=== PATIENT | female | born 1955 | race Caucasian/White ===

== ENCOUNTER 2016-11-13 08:09 | Emergency (ER) | payer BC ==
[2016-11-13 08:18] VITALS: BP 124/68
--- NOTE | 2016-11-26 09:34 | UC ---
Stewart Gutierrez Angela, scribed for Freda Garcia MD on 11/13/16 at 0842 . Abdominal Pain Female HPI - HPI Summary HPI Summary: This pt is a 61 y/o female presenting to [facility] c/o worsening LLQ abd pain x2 days. Pt reports that she had diarrhea 3 days ago for 2 days, Saturday and Saturday. She denies bloody diarrhea or SOB. Her last bowel movement was 2 days ago. Pt additionally reports her abd is bloated. She states urinary urgency but denies dysuria and hematuria. Pt notes she had a fever of 100.6 F last night. Last time she had something to eat was last night and this morning she had some water. PMHx: kidney stones. Pt denies FHx of diverticulitis, DM or thyroid disease. Pt had scoliosis surgery at the age of 14. - History of Current Complaint Chief Complaint: UCAbdominalPain Stated Complaint: ABDOMINAL PAIN Time Seen by Provider: 11/13/16 08:30 Hx Obtained From: Patient Onset/Duration: Lasting Days Location: Discrete At: LLQ Associated Signs and Symptoms: Positive: Fever, Urinary Symptoms - urinary frequency only, Diarrhea. Negative: Constipation, Nausea, Vomiting Allergies/Adverse Reactions: Allergies Allergy/AdvReac Type Severity Reaction Status Date / Time No Known Allergies Allergy Verified 11/13/16 09:32 PMH/Surg Hx/FS Hx/Imm Hx Other Endocrine History: DENIES: diabetes Other Cardiovascular History: DENIES: HTN GI/ History: Kidney Stones - Surgical History Surgical History: Yes Surgery Procedure, Year, and Place: right breast- scar lateral edge of nipple= approx 10 yrs ago. scoliosis - Family History Known Family History: Positive: Other - Denies FHx of diverticulitis. Mother had fatal lung CA. Negative: Cardiac Disease, Diabetes - Social History Alcohol Use: Daily Alcohol Amount: wine nightly Substance Use Type: None Smoking Status (MU): Never Smoked Tobacco Review of Systems Constitutional: Fever Skin: Negative Eyes: Negative ENT: Negative Respiratory: Negative Cardiovascular: Negative Gastrointestinal: Abdominal Pain, Diarrhea Genitourinary: Urgency Motor: Negative Neurovascular: Negative Musculoskeletal: Negative Neurological: Negative Psychological: Negative All Other Systems Reviewed And Are Negative: Yes Physical Exam Triage Information Reviewed: Yes Appearance: Well-Nourished Vital Signs: Initial Vital Signs Temp 99.2 F 11/13/16 08:13 Pulse 53 11/13/16 08:13 Resp 16 11/13/16 08:13 BP 124/68 11/13/16 08:13 Pulse Ox 97 11/13/16 08:13 Vital Signs Reviewed: Yes Eye Exam: Normal ENT Exam: Normal ENT: Positive: Pharynx normal, TMs normal Neck exam: Normal Respiratory Exam: Normal Respiratory: Positive: Chest non-tender, Lungs clear, Normal breath sounds, No respiratory distress, No accessory muscle use Cardiovascular: Positive: No Murmur, Pulses Normal, Brisk Capillary Refill, Other: - Regular rate with occasional skip beat. Abdomen Description: Positive: No Organomegaly, Soft, Other: - Tender on the LLQ , no r/g, but tender. No devon cvat. Bowel Sounds: Positive: Present Musculoskeletal Exam: Normal Musculoskeletal: Positive: Strength Intact Neurological Exam: Normal - nonfocal, grossly intact Psychological Exam: Normal - conversing easily and appropriately Skin Exam: Normal - no visible or reported rash Diagnostics - EKG Cardiac Rhythm: Sinus: Normal - at 105 bpm with PACs. No older EKG for comparison. Ectopy: PACs Abd Pain Female Course/Dx - Course Course Of Treatment: Recommend further eval / tx in ED. Patient offered and encouraged EMS. Patient declines. She will go the ED pov. I spoke to PRIYA Gasca from the ED at 0921. - Differential Dx/Diagnosis Provider Diagnoses: LLQ abd pain acute Discharge - Discharge Plan Condition: Guarded Disposition: [facility] Patient Education Materials: Abdominal Pain (ED) Referrals: Pebbles Fallon MD [Primary Care Provider] - Additional Instructions: PLEASE GO DIRECTLY TO THE EMERGENCY DEPARTMENT. Don't stop to eat or drink. Stop and call 911 for any worsening problems. The documentation as recorded by the Steawrt cuellar Angela accurately reflects the service I personally performed and the decisions made by me, Freda Garcia MD.
== END 2016-11-13 09:03 | disposition short-term general hospital (02) ==
LOC: UCEAST 08:09
DX: R10.32 Left lower quadrant pain (principal); R50.9 Fever, unspecified; R35.0 Frequency of micturition; R19.7 Diarrhea, unspecified; R00.0 Tachycardia, unspecified; Z87.442 Personal history of urinary calculi
CPT/HCPCS: 93005; 99211; G0463

== ENCOUNTER → 2016-11-13 09:24 | Emergency (ER) | payer BC ==
[~2016-11-13 09:24] MED LIST: Iohexol 300* (CONTRAST) 10 ML SDV IV ONE; Morphine INJ* 4 MG/ML 1 ML CARPUJECT IV ONE; NS 0.9% 1000 ML* 2,000 ML IV ONE; Ondansetron INJ* 2 MG/ML VIAL IV ONE
[2016-11-13 10:45] LABS: Hematocrit 39 % (35-47); Hemoglobin 13.3 g/dl (12.0-16.0); Mean Corpuscular HGB Conc 34 g/dl (31-36); Mean Corpuscular Hemoglobin 30 pg (27-31); Mean Corpuscular Volume 87 fL (80-97); Mean Platelet Volume 7 um3 (7.4-10.4); Red Blood Count 4.47 10^6/ul (4.0-5.4); Red Cell Distribution Width 13 % (10.5-15); White Blood Count 11.4 10^3/ul (3.5-10.8)
[2016-11-13 10:58] LABS: ALT 9 U/L (7-52); AST 13 U/L (13-39); Alkaline Phosphatase 58 U/L (34-104); Anion Gap 8 mmol/L (2-11); BUN/Creatinine Ratio 14.7 (8-20); Blood Urea Nitrogen 10 mg/dL (6-24); C Reactive Protein 95.93 mg/L (< 5.00); CO2 Carbon Dioxide 25 mmol/L (22-32); Calcium 9.4 mg/dL (8.6-10.3); Chloride 104 mmol/L (101-111); EGFR African American 113.5 (>60); EGFR Non-African American 88.3 (>60); Globulin 2.7 g/dL (2-4); Glucose 95 mg/dL (70-100); Lipase < 10 U/L (11.0-82.0); Potassium 3.7 mmol/L (3.5-5.0); Sodium 137 mmol/L (133-145); Total Protein 6.7 g/dL (6.4-8.9)
[2016-11-13 11:57] LABS: Urine Nitrite Negative (Negative)
[2016-11-13 11:58] LABS: Urine Bilirubin Negative (Negative); Urine Glucose Negative (Negative)
--- NOTE | 2016-11-13 13:37 | RAD ---
CLINICAL HISTORY: Left lower quadrant tenderness, colitis, abscess COMPARISON: None TECHNIQUE: Multiple contiguous axial CT scans were obtained of the abdomen and pelvis after the administration of intravenous contrast. Coronal and sagittal multiplanar reformations are submitted for review. Oral contrast was administered. Delayed images were obtained through the abdomen and pelvis. FINDINGS: LUNG BASES: The lung bases are clear. LIVER: There are multiple hepatic parenchymal cysts, measuring up to 5.3 centers in size. These measure simple fluid in attenuation. There is a hypervascular lesion of the right lobe of liver measuring 4.2 cm in size on the venous phase that resolves on the delayed images. BILE DUCTS: There is no intrahepatic or extrahepatic biliary dilatation. GALLBLADDER: The gallbladder is normal, without pericholecystic inflammatory change. PANCREAS: The pancreas is normal, without mass or ductal dilatation. SPLEEN: Normal in size and appearance. UPPER GI TRACT: Evaluation of the gastrointestinal tract is limited by incomplete gastric distention. The upper GI tract is unremarkable. SMALL BOWEL AND MESENTERY: The small bowel is normal in contour, course, and caliber. There is no obstruction or dilatation. COLON: There are multiple diverticula of the descending and sigmoid colon, including a giant diverticulum at the descending-sigmoid junction measuring approximately 2.6 centers in size. There is associated pericolonic inflammatory change. There is also mucosal thickening of the colon at this level. ADRENALS: Normal bilaterally. KIDNEYS: The kidneys are normal in shape, size, contour, and axis. There is no hydronephrosis or nephrolithiasis. BLADDER: The bladder is smooth in contour. PELVIC ORGANS: The uterus and adnexa are grossly normal for technique. AORTA: The aorta is normal. IVC: Unremarkable LYMPH NODES: There is no lymphadenopathy by size criteria. ABDOMINAL WALL: There is no evidence for abdominal wall hernia. BONES AND SOFT TISSUES: There is a scoliotic curvature of the spine. There is postsurgical change to the spine. OTHER: None IMPRESSION: 1. THERE IS DIVERTICULOSIS OF THE COLON, INCLUDING A GIANT DIVERTICULUM AT THE DESCENDING-SIGMOID COLON JUNCTION WITH ASSOCIATED PERICOLONIC INFLAMMATORY CHANGE, MOST CONSISTENT WITH DIVERTICULITIS. THERE IS NO LOCULATED FLUID COLLECTION TO SUGGEST ABSCESS. 2. ADDITIONALLY, THERE IS FOCAL MUCOSAL THICKENING AT THE LEVEL OF INFLAMMATORY CHANGE. WHILE THIS MAY BE REACTIVE SECONDARY TO THE DIVERTICULITIS, COLONIC MUCOSAL NEOPLASM MAY GIVE A SIMILAR APPEARANCE. RECOMMEND CONSIDERATION OF CORRELATION WITH DIRECT VISUALIZATION AFTER RESOLUTION OF THE ACUTE SYMPTOMS. 3. MULTIPLE HEPATIC PARENCHYMAL CYSTS. 4. PROBABLE GIANT HEMANGIOMA OF THE RIGHT LOBE OF LIVER. RECOMMEND CONSIDERATION OF FURTHER EVALUATION WITH MULTIPHASE CONTRAST ENHANCED LIVER PROTOCOL CT, OR CONTRAST-ENHANCED MRI OF THE ABDOMEN IN THE NONACUTE SETTING
[2016-11-13 15:06] VITALS: BP 134/86
--- NOTE | 2016-11-13 15:48 | ED ---
Ariela Gutierrez Thomas, scribed for Tomas Molina MD on 11/13/16 at 1018 . Abdominal Pain/Female - HPI Summary HPI Summary: The pt is a 61 y/o F presenting to the ED c/o LLQ abd pain that began two days ago in the morning. She rates her pain 5/10. The bumps hurt on the car ride to [facility]. The pain is aggravated by walking and alleviated by putting her feet up. The patient has treated the pain with nothing [employer]. Pt additionally c/o nausea, diarrhea (two days ago), constipation since two days ago, fever, and chills. Pt denies vomiting, back pain, dysuria, hematuria, dark urine, hematochezia, hematemesis, rhinorrhea, sore throat, and decreased appetite. She has had a colonoscopy and there were polyps removed. PMHx: previously healthy. SHx: no smoking, daily alcohol use, no illicit drug use. FHx: negative for diverticulitis and colon CA. Her PCP is Dr. Nabila South. - History of Current Complaint Chief Complaint: EDAbdPain Stated Complaint: ABD PAIN Time Seen by Provider: 11/13/16 10:02 Hx Obtained From: Patient Onset/Duration: Lasting Days - onset two days ago, Still Present Timing: Constant Severity Currently: Moderate Pain Intensity: 5 Pain Scale Used: 0-10 Numeric Location: Discrete At: LLQ Radiates: No Aggravating Factor(s): Movement Alleviating Factor(s): Position Associated Signs and Symptoms: Positive: Fever, Constipation - since two days ago, Nausea, Diarrhea - two days ago, Other: - POS: chills; NEG: hematemesis, rhinorrhea, sore throat. Negative: Blood in Stool, Urinary Symptoms, Decreased Appetite Allergies/Adverse Reactions: Allergies Allergy/AdvReac Type Severity Reaction Status Date / Time No Known Allergies Allergy Verified 11/13/16 09:32 PMH/Surg Hx/FS Hx/Imm Hx Previously Healthy: No Cardiovascular History: Denies: Hx Congestive Heart Failure Respiratory History: Denies: Hx Chronic Obstructive Pulmonary Disease (COPD) - Cancer History Hx Radiation Therapy: No - Surgical History Surgery Procedure, Year, and Place: right breast- scar lateral edge of nipple= approx 10 yrs ago. scoliosis Infectious Disease History: No Infectious Disease History: Denies: Traveled Outside the [place] in Last 30 Days - Family History Known Family History: Positive: Other - NEG: diverticulitis, colon CA - Social History Alcohol Use: Daily Alcohol Amount: wine nightly Hx Substance Use: No Substance Use Type: Reports: None Hx Tobacco Use: No Smoking Status (MU): Never Smoked Tobacco Review of Systems Positive: Fever - fever per patient, but she is afebrile in the ED, Chills Negative: Sore Throat, Nasal Discharge Positive: Abdominal Pain - LLQ abd pain onset two days ago, Diarrhea - two days ago, Nausea, Other - POS: constipation since two days ago; NEG: bloody stool, hematemesis, decreased appetite. Negative: Vomiting Negative: dysuria, hematuria, other - NEG: dark urine Negative: Other - NEG: back pain All Other Systems Reviewed And Are Negative: Yes Physical Exam - Summary Physical Exam Summary: The patient is well-nourished in no acute distress and in no acute pain. The skin is warm and dry and skin color reflects adequate perfusion. HEENT: The head is normocephalic and atraumatic. The pupils are equal and reactive. The conjunctivae are clear and without drainage. Nares are patent and without drainage. Mouth reveals moist mucous membranes and the throat is without erythema and exudate. The external ears are intact. The ear canals are patent and without drainage. The tympanic membranes are intact. Neck is supple with full range of motion and non-tender. There are no carotid bruits. There is no neck vein distension. Respiratory: Chest is non-tender. Lungs are clear to auscultation and breath sounds are symmetrical and equal. Cardiovascular: Heart is tachycardic and with regular rhythm. There is no murmur or rub auscultated. There is no peripheral edema and pulses are symmetrical and equal. Abdomen: The abdomen is soft. There is tenderness in the left mid quadrant and the left lower quadrant. There is percussion tenderness. There is no CVA tenderness. There is questionable rebound. There are normal bowel sounds heard in all four quadrants and there is no organomegaly palpated. Musculoskeletal: There is no back pain noted. Extremities are non-tender with full range of motion. There is good capillary refill. There is no peripheral edema or calf tenderness elicited. She does have pain with flexion of her left knee. Neurological: Patient is alert and oriented to person, place and time. The patient has symmetrical motor strength in all four extremities. Cranial nerves are grossly intact. Deep tendon reflexes are symmetrical and equal in all four extremities. Psychiatric: The patient has an appropriate affect and does not exhibit any anxiety or depression. Triage Information Reviewed: Yes Vital Signs On Initial Exam: Initial Vitals Temp Pulse Resp BP Pulse Ox 98.4 F 105 20 119/82 99 11/13/16 09:25 11/13/16 09:25 11/13/16 09:25 11/13/16 09:25 11/13/16 09:25 Vital Signs Reviewed: Yes - Tima Coma Scale Coma Scale Total: 15 Diagnostics - Vital Signs Vital Signs Temp Pulse Resp BP Pulse Ox 11/13/16 09:25 98.4 F 105 20 119/82 99 - Laboratory Lab Results: Lab Results 11/13/16 11/13/16 11/13/16 Range/Units 10:30 10:30 10:30 WBC 11.4 H (3.5-10.8) 10^3/ul RBC 4.47 (4.0-5.4) 10^6/ul Hgb 13.3 (12.0-16.0) g/dl Hct 39 (35-47) % MCV 87 (80-97) fL MCH 30 (27-31) pg MCHC 34 (31-36) g/dl RDW 13 (10.5-15) % Plt Count 185 (150-450) 10^3/ul MPV 7 L (7.4-10.4) um3 Neut % (Auto) 78.0 (38-83) % Lymph % (Auto) 12.8 L (25-47) % [place] % (Auto) 8.6 (1-9) % Eos % (Auto) 0.2 (0-6) % Baso % (Auto) 0.4 (0-2) % Absolute Neuts (auto) 8.9 H (1.5-7.7) 10^3/ul Absolute Lymphs (auto) 1.5 (1.0-4.8) 10^3/ul Absolute Monos (auto) 1.0 H (0-0.8) 10^3/ul Absolute Eos (auto) 0 (0-0.6) 10^3/ul Absolute Basos (auto) 0 (0-0.2) 10^3/ul Absolute Nucleated RBC 0.01 10^3/ul Nucleated RBC % 0.1 Sodium 137 (133-145) mmol/L Potassium 3.7 (3.5-5.0) mmol/L Chloride 104 (101-111) mmol/L Carbon Dioxide 25 (22-32) mmol/L Anion Gap 8 (2-11) mmol/L BUN 10 (6-24) mg/dL Creatinine 0.68 (0.51-0.95) mg/dL Est GFR ( Amer) 113.5 (>60) Est GFR (Non-Af Amer) 88.3 (>60) BUN/Creatinine Ratio 14.7 (8-20) Glucose 95 (70-100) mg/dL Lactic Acid 0.9 (0.5-2.0) mmol/L Calcium 9.4 (8.6-10.3) mg/dL Total Bilirubin 0.90 (0.2-1.0) mg/dL AST 13 (13-39) U/L ALT 9 (7-52) U/L Alkaline Phosphatase 58 (34-104) U/L C-Reactive Protein 95.93 H (< 5.00) mg/L Total Protein 6.7 (6.4-8.9) g/dL Albumin 4.0 (3.2-5.2) g/dL Globulin 2.7 (2-4) g/dL Albumin/Globulin Ratio 1.5 (1-3) Lipase < 10 L (11.0-82.0) U/L Urine Color Urine Appearance Urine pH (5-9) Ur Specific [place] (1.010-1.030) Urine Protein (Negative) Urine Ketones (Negative) Urine Blood (Negative) Urine Nitrate (Negative) Urine Bilirubin (Negative) Urine Urobilinogen (Negative) Ur Leukocyte Esterase (Negative) Urine WBC (Auto) (Absent) Urine RBC (Auto) (Absent) Ur Squamous Epith Cells (Absent) Urine Bacteria Urine Glucose (Negative) Urine Ascorbic Acid 11/13/16 Range/Units 11:40 WBC (3.5-10.8) 10^3/ul RBC (4.0-5.4) 10^6/ul Hgb (12.0-16.0) g/dl Hct (35-47) % MCV (80-97) fL MCH (27-31) pg MCHC (31-36) g/dl RDW (10.5-15) % Plt Count (150-450) 10^3/ul MPV (7.4-10.4) um3 Neut % (Auto) (38-83) % Lymph % (Auto) (25-47) % [place] % (Auto) (1-9) % Eos % (Auto) (0-6) % Baso % (Auto) (0-2) % Absolute Neuts (auto) (1.5-7.7) 10^3/ul Absolute Lymphs (auto) (1.0-4.8) 10^3/ul Absolute Monos (auto) (0-0.8) 10^3/ul Absolute Eos (auto) (0-0.6) 10^3/ul Absolute Basos (auto) (0-0.2) 10^3/ul Absolute Nucleated RBC 10^3/ul Nucleated RBC % Sodium (133-145) mmol/L Potassium (3.5-5.0) mmol/L Chloride (101-111) mmol/L Carbon Dioxide (22-32) mmol/L Anion Gap (2-11) mmol/L BUN (6-24) mg/dL Creatinine (0.51-0.95) mg/dL Est GFR ( Amer) (>60) Est GFR (Non-Af Amer) (>60) BUN/Creatinine Ratio (8-20) Glucose (70-100) mg/dL Lactic Acid (0.5-2.0) mmol/L Calcium (8.6-10.3) mg/dL Total Bilirubin (0.2-1.0) mg/dL AST (13-39) U/L ALT (7-52) U/L Alkaline Phosphatase (34-104) U/L C-Reactive Protein (< 5.00) mg/L Total Protein (6.4-8.9) g/dL Albumin (3.2-5.2) g/dL Globulin (2-4) g/dL Albumin/Globulin Ratio (1-3) Lipase (11.0-82.0) U/L Urine Color Yellow Urine Appearance Clear Urine pH 5.0 (5-9) Ur Specific [place] 1.020 (1.010-1.030) Urine Protein N (Negative) Urine Ketones 1+ H (Negative) Urine Blood 1+ H (Negative) Urine Nitrate Negative (Negative) Urine Bilirubin Negative (Negative) Urine Urobilinogen N (Negative) Ur Leukocyte Esterase Negative (Negative) Urine WBC (Auto) Absent (Absent) Urine RBC (Auto) Trace(0-2/hpf) (Absent) Ur Squamous Epith Cells Present H (Absent) Urine Bacteria Not Reportable Urine Glucose Negative (Negative) Urine Ascorbic Acid Not Reportable Result Diagrams: 11/13/16 10:30 11/13/16 10:30 Lab Statement: Any lab studies that have been ordered have been reviewed, and results considered in the medical decision making process. - CT CT Abd/Pel CT Interpretation: Positive (See Comments) - CT Abd/Pel shows 1. THERE IS DIVERTICULOSIS OF THE COLON, INCLUDING A GIANT DIVERTICULUM AT THE DESCENDING- SIGMOID COLON JUNCTION WITH ASSOCIATED PERICOLONIC INFLAMMATORY CHANGE, MOST CONSISTENT WITH DIVERTICULITIS. THERE IS NO LOCULATED FLUID COLLECTION TO SUGGEST ABSCESS. 2. ADDITIONALLY, THERE IS FOCAL MUCOSAL THICKENING AT THE LEVEL OF INFLAMMATORY CHANGE. WHILE THIS MAY BE REACTIVE SECONDARY TO THE DIVERTICULITIS, COLONIC MUCOSAL NEOPLASM MAY GIVE A SIMILAR APPEARANCE. RECOMMEND CONSIDERATION OF CORRELATION WITH DIRECT VISUALIZATION AFTER RESOLUTION OF THE ACUTE SYMPTOMS. 3. MULTIPLE HEPATIC PARENCHYMAL CYSTS. 4. PROBABLE GIANT HEMANGIOMA OF THE RIGHT LOBE OF LIVER. RECOMMEND CONSIDERATION OF FURTHER EVALUATION WITH MULTIPHASE CONTRAST ENHANCED LIVER PROTOCOL CT, OR CONTRAST-ENHANCED MRI OF THE ABDOMEN IN THE NONACUTE SETTING. ED physician has reviewed this report and agrees. CT Interpretation Completed By: Radiologist Abdominal Pain Fem Course/Dx - Course Course Of Treatment: The pt is a 61 y/o F presenting to the ED c/o LLQ abd pain that began two days ago in the morning. She rates her pain 5/10. The bumps hurt on the car ride to [facility]. The pain is aggravated by walking and alleviated by putting her feet up. The patient has treated the pain with nothing [employer]. Pt additionally c/o nausea, diarrhea (two days ago), constipation since two days ago, fever, and chills. Pt denies vomiting, back pain, dysuria, hematuria, dark urine, hematochezia, hematemesis, rhinorrhea, sore throat, and decreased appetite. She has had a colonoscopy and there were polyps removed. PMHx: previously healthy. SHx: no smoking, daily alcohol use, no illicit drug use. FHx : negative for diverticulitis and colon CA. Her PCP is Dr. Nabila South. In the ED course the patient was given IV fluids, Morphine, and Zofran. Bloodwork shows WBC 11.4, CRP 95.93. CT Abd/Pel shows 1. THERE IS DIVERTICULOSIS OF THE COLON, INCLUDING A GIANT DIVERTICULUM AT THE. DESCENDING-SIGMOID COLON JUNCTION WITH ASSOCIATED PERICOLONIC INFLAMMATORY CHANGE, MOST. CONSISTENT WITH DIVERTICULITIS. THERE IS NO LOCULATED FLUID COLLECTION TO SUGGEST ABSCESS. 2. ADDITIONALLY, THERE IS FOCAL MUCOSAL THICKENING AT THE LEVEL OF INFLAMMATORY CHANGE. WHILE THIS MAY BE REACTIVE SECONDARY TO THE DIVERTICULITIS , COLONIC MUCOSAL NEOPLASM MAY. GIVE A SIMILAR APPEARANCE. RECOMMEND CONSIDERATION OF CORRELATION WITH DIRECT. VISUALIZATION AFTER RESOLUTION OF THE ACUTE SYMPTOMS. 3. MULTIPLE HEPATIC PARENCHYMAL CYSTS. 4. PROBABLE GIANT HEMANGIOMA OF THE RIGHT LOBE OF LIVER. RECOMMEND CONSIDERATION OF. FURTHER EVALUATION WITH MULTIPHASE CONTRAST ENHANCED LIVER PROTOCOL CT, OR. CONTRAST-ENHANCED MRI OF THE ABDOMEN IN THE NONACUTE SETTING. UA shows 1+ ketones and 1+ blood. She is diagnosed with acute diverticulitis. She will be prescribed Cipro, Flagyl, and some Percocet. She will be discharged home. She is stable. Patient is agreeable to this plan. - Diagnoses Differential Diagnosis: Positive: Bowel Obstruction, Diverticulitis, Irritable Bowel Syndrome, Pancreatitis, Urinary Tract Infection Provider Diagnoses: Acute diverticulitis Discharge - Discharge Plan Condition: Stable Disposition: HOME Prescriptions: Ciprofloxacin TAB* [Cipro 500 MG TAB*] 500 mg PO BID #20 tab Metronidazole [Flagyl 500 MG TAB] 500 mg PO QID #40 tab oxyCODONE/Acetamin 5/325 MG* [Percocet 5/325 TAB*] 1 tab PO Q6H PRN #20 tab MDD 4 PRN Reason: pain Patient Education Materials: Diverticulitis (ED) Referrals: Pebbles Fallon MD [Primary Care Provider] - 3 Days The documentation as recorded by the Ariela cuellar Thomas accurately reflects the service I personally performed and the decisions made by Jesse davies Drew, MD.
== END | disposition home or self-care (01) ==
LOC: ED 09:24
DX: K57.92 Diverticulitis of intestine, part unspecified, without perforation or abscess without bleeding (principal)
CPT/HCPCS: 36415; 74177; 80053; 81003; 81015; 83605; 83690; 85025; 86140; 87040; 96360; 96374; 96375; 99283; J2270; J2405; Q9967

== ENCOUNTER 2018-08-24 10:49 | Emergency (ER) | payer BC ==
[2018-08-24 11:16] VITALS: BP 118/78
--- NOTE | 2018-08-24 11:57 | UC ---
Upper Extremity HPI - HPI Summary HPI Summary: Patient presents to urgent care for evaluation of her left forearm injury. Patient states she was cleaning windows when wooden blinds and fell down and hit her mid left forearm. Patient is right-hand dominant. Patient states she has pain with movement of her wrist since this time. No elbow pain. No analgesia taken. Patient did apply ice and is wearing a sling from home. Patient reports mild paresthesias to her fingers. No weakness. No open wounds. Patient without any other injuries. Medications reviewed this visit. - History of Current Complaint Chief Complaint: UCUpperExtremity Stated Complaint: ARM INJURY Time Seen by Provider: 08/24/18 11:45 Hx Obtained From: Patient ?: No Onset/Duration: Sudden Onset Severity Initially: Mild Severity Currently: Mild Pain Intensity: 4 - Allergies/Home Medications Allergies/Adverse Reactions: Allergies Allergy/AdvReac Type Severity Reaction Status Date / Time No Known Allergies Allergy Verified 08/24/18 11:16 PMH/Surg Hx/FS Hx/Imm Hx Previously Healthy: Yes - Surgical History Surgical History: Yes Surgery Procedure, Year, and Place: right breast- scar lateral edge of nipple= approx 10 yrs ago. scoliosis - Family History Known Family History: Positive: Other - NEG: diverticulitis, colon CA, Non- Contributory - Social History Lives: With Family Alcohol Use: Daily Alcohol Amount: wine nightly Substance Use Type: None Smoking Status (MU): Never Smoked Tobacco Review of Systems All Other Systems Reviewed And Are Negative: Yes Constitutional: Positive: Negative Skin: Positive: Negative Musculoskeletal: Positive: Other: - left forearm Is Patient Immunocompromised?: No Physical Exam - Summary Physical Exam Summary: Vital Signs Reviewed: Yes A+Ox3, mild discomfort with moving Eyes: Conjunctiva Clear ENT: Hearing grossly normal neck: supple Respiratory: Positive: No respiratory distress, No accessory muscle use Cardiovascular: skin color reflect adequate perfusion 2+ radial, 2+ ulnar CBT < 2 sec Musculoskeletal Exam: + abduct left shoulder + flex/ext elbow + discomfort midforearm. with direct palpation Pain increased with extension of wrist an supinate/pronation. No tenderness to palpation of wrist, carpals, metacarpals Neurological: Positive: Alert, ambulatory without difficulty + gross sensation , + thumb up, a ok, finger spread, finger cross Psychological: Positive: Normal Response To examiner Skin: Positive: no rash, no ecchymosis, mild erythema dorsum right midforarm No abraison Triage Information Reviewed: Yes Vital Signs: Initial Vital Signs Temp 100.6 F 08/24/18 11:12 Pulse 86 08/24/18 11:12 Resp 18 08/24/18 11:12 BP 118/78 08/24/18 11:12 Pulse Ox 98 08/24/18 11:12 Diagnostics - Radiology No standard instances Radiology Interpretation Completed By: Radiologist - Patient Name: BRIANA ADKINS Medical Record#: [id number] Ordering Physician: Mery Chacon MD Acct.#: [id number] : 1955 Age: 63 Sex: F Location: [facility] Exam Date: 08/24/18 112 ADM Status: REG ER Order Information: FOREARM LEFT 2 VWS Accession Number: [id number] CPT: 45039 Indication: Left forearm pain. 2 views of left forearm demonstrates no fracture or dislocation. No other bone or joint abnormality is identified. IMPRESSION: No fracture of the left forearm is noted. < Electronically signed by Daria Parker MD in OV> 08/24/18 1249 Dictated By: Daria Parker MD Dictated Date/Time: 08/24/18 1249 Transcribed Date/Time: 08/24/18 1248 Copy to: CC:Nabila South MD; Mery Chacon MD [facility] Imaging [facility] [address] [place] [address] ph ([phone]) ph ([phone] ) ph ([phone]) This report is only to be considered final once signed by the Provider(s) as displayed in the "<Electronically Signed by >" field (s). Absence of a signature indicates the report is in a draft status and still needs to be finalized. In the event this document was created by someone other than the signing Provider, the individual initiating the document will be listed in the "Entered by:" or "Dictated by:" mortensen. 1 of Patient Name: BRIANA ADKINS Medical Record#: [id number] Ordering Physician: Mery Chcaon MD Acct.#: [id number] : 1955 Age: 63 Sex: F Location: [facility] Exam Date: 08/24/18 1125 ADM Status: REG ER Order Information: WRIST LEFT 3+ VWS Accession Number: [id number] CPT : 46483 Indication: Left wrist pain 3 views of the wrist demonstrates no fracture. No other bone or joint abnormality is identified. IMPRESSION: NO FRACTURE OF THE WRIST IS NOTED. < Electronically signed by Daria Parker MD in OV> 08/24/18 124 Dictated By: Daria Parker MD Dictated Date/Time: 08/24/18 124 Transcribed Date/Time: 08/24/181248 Copy to: CC:Nabila South MD; Mery Chacon MD Imaging - [facility] Imaging - [place] [address] [address] ph ([phone]) ph ([phone]) ph ([phone]) This report is only to be considered final once signed by the Provider(s) as displayed in the "<Electronically Signed by >" field (s). Absence of a signature indicates the report is in a draft status and still needs to be finalized. In the event this document was created by someone other than the signing Provider, the individual initiating the document will be listed in the "Entered by:" or "Dictated by:" mortensen. Re-Evaluation - Re-Evaluation First Eval Comment: reviewed images with pt. will give splint for comfort. sling. motrin /apap. rest. f/u with PCP if sxpersist Upper Extremity Course/Dx - Course Course Of Treatment: Patient presents to urgent care for evaluation of her left forearm. Patient is [id number]. Patient states she was cleaning a window when the within blinds fell and struck mid forearm. Patient with pain immediately. Mild paresthesias. No deformity. No analgesia taken. Ice was applied. On exam vital signs are stable. Patient with tenderness distal forearm on the dorsal aspect. Pain increases with activation of the extensor compartment. Patient distal CSM intact. We'll image. Negative we'll keep sling ice Motrin Tylenol elevate return precautions. Patient comfortable in agreement with plan. - Differential Dx/Diagnosis Provider Diagnosis: Contusion of forearm, left Discharge - Sign-Out/Discharge Documenting (check all that apply): Patient Departure All imaging exams completed and their final reports reviewed: Yes - Discharge Plan Condition: Stable Disposition: HOME Patient Education Materials: Contusion in Adults (ED) Referrals: Nabila South MD [Primary Care Provider] - Additional Instructions: - Okay to alternate ibuprofen (Advil, Motrin) and Tylenol every 3 hours for pain or fever. Take with food. Do NOT take for more than 4-5 days. - Apply ice (Wrapped in a towel) 20 minutes at a time,2-3times a day - wear sling and splint for comfort and support - frequently move your fingers and gently bend/straighten your elbow - contact your doctor to schedule a follow-up if pain persists or you have any different or concerning symptoms - Billing Disposition and Condition Condition: STABLE Disposition: Home
[2018-08-24] MEDS ORDERED: Acetaminophen TAB* 325 MG PO ONE (12:24)
== END 2018-08-24 13:15 | disposition home or self-care (01) ==
LOC: UCEAST 10:49
DX: S50.12XA Contusion of left forearm, initial encounter (principal); W22.8XXA Striking against or struck by other objects, initial encounter; Y93.E9 Activity, other interior property and clothing maintenance; Y92.019 Unspecified place in single-family (private) house as the place of occurrence of the external cause; Y99.8 Other external cause status
CPT/HCPCS: 99213; A9270-GY; G0463